=== PATIENT | female | born 1940 | race Caucasian/White ===

== ENCOUNTER 2018-11-10 15:52 | Emergency (ER) | payer MEDICARE, OTHER ==
--- NOTE | 2018-11-10 16:57 | ED Physician Documentation ---
PD HPI SKIN - Stated complaint Stated Complaint: POSS ALLERGIC REACTION - Chief complaint Chief Complaint: Allergic Rx - History obtained from History obtained from: Patient - History of Present Illness Timing - onset: How many minutes ago (20), Today Timing - duration: Minutes (onset about 20 minutes ago of abrupt swelling eyes, face, throat, and general itching. No obvious cause to it.) Timing - details: Abrupt onset, Still present (has improved from the peak of the swelling already.) Location: [place] Quality / character: Itchy, Swelling Associated symptoms: Facial swelling, Dyspnea. No: Fever, Myalgias, Abd pain, N/V/D Contributing factors: Exposed to food. No: Exposed to medication, Recent illness Similar symptoms before: No diagnosis (has had this couple of times, not as severe, also abrupt and resolves in hours to a day. has been several months prior) Recently seen: Not recently seen Review of Systems Constitutional: denies: Fever, Chills Nose: denies: Rhinorrhea / runny nose, Congestion Throat: denies: Sore throat Respiratory: denies: Cough GI: denies: Nausea, Vomiting, Diarrhea Neurologic: denies: Generalized weakness, Focal weakness, Numbness, Near syncope, Altered mental status PD PAST MEDICAL HISTORY - Past Medical History Past Medical History: Yes Cardiovascular: High cholesterol Endocrine/Autoimmune: HyPOthyroidism - Present Medications Home Medications: Ambulatory Orders Medication Instructions Recorded Confirmed Aspirin Chewable [[place] 11/10/18 Aspirin] Atorvastatin Calcium 20 mg PO DAILY PM 11/10/18 11/10/18 Celecoxib [Celebrex] 11/10/18 Cetirizine [ZyrTEC] 11/10/18 Cetirizine [ZyrTEC] 10 mg PO DAILY #15 tablet 11/10/18 Dexamethasone [Decadron] 4 mg PO DAILY #5 tablet 11/10/18 Diclofenac Sodium [Voltaren] 11/10/18 Dicyclomine [Bentyl] 11/10/18 EPINEPHrine [Epinephrine] 0.3 mg IJ ONCE PRN #1 auto.injct 11/10/18 FLUoxetine [PROzac] 20 mg PO DAILY 11/10/18 11/10/18 Fluticasone [Flonase] 11/10/18 Ketotifen Fumarate 2 drops OP Q4H PRN #5 ml 11/10/18 Levothyroxine [Synthroid] 75 mcg PO DAILY 11/10/18 11/10/18 Multivitamin [Multiple Vitamins] 1 tab PO DAILY 11/10/18 11/10/18 Omeprazole 20 mg PO DAILY 11/10/18 11/10/18 Polyethylene Glycol 3350 [Miralax] 11/10/18 traZODone [Desyrel] 50 mg PO DAILY 11/10/18 11/10/18 - Allergies Allergies/Adverse Reactions: Allergies Allergy/AdvReac Type Severity Reaction Status Date / Time No Known Drug Allergies Allergy Verified 11/10/18 15:58 - Social History Does the pt smoke?: No Smoking Status: Never smoker PD ED PE NORMAL - Vitals Vital signs reviewed: Yes - General General: Alert and oriented X 3, No acute distress, Well developed/nourished - HEENT HEENT: Other (bilateral periorbital edema. Not really general facial edema though.). No: Pharynx benign (mild uvular edema.) - Neck Neck: Supple, no meningeal sign, No adenopathy - Cardiac Cardiac: RRR, No murmur - Respiratory Respiratory: Clear bilaterally - Abdomen Abdomen: Soft, Non tender - Derm Derm: Normal color, Warm and dry - Neuro Neuro: Alert and oriented X 3, No motor deficit, Normal speech Results - Vitals Vitals: Vital Signs - 24 hr 11/10/18 11/10/18 11/10/18 15:53 16:34 17:23 Temperature 36.4 C L Heart Rate 75 74 72 Respiratory 16 18 18 Rate Blood Pressure 153/84 H 131/81 H O2 Saturation 99 100 97 Oxygen O2 Source Room air PD MEDICAL DECISION MAKING - ED course Complexity details: considered differential (has puffy eyes and some uvular edema, but is improving already without treatment. No obvious cause for the symptoms. Given general symptoms, including some throat edema, she should problably carry epipen. Will treat with allergy regimen.), d/w patient Departure - Departure Disposition: 01 Home, Self Care Clinical Impression: Acute allergic reaction Qualifiers: Encounter type: initial encounter Qualified Code(s): T78.40XA - Allergy, unspecified, initial encounter Condition: Stable Record reviewed to determine appropriate education?: Yes Instructions: ED Allergic Reaction General Other Follow-Up: Júnior Morales MD [Primary Care Provider] - Prescriptions: Cetirizine [ZyrTEC] 10 mg PO DAILY #15 tablet Dexamethasone [Decadron] 4 mg PO DAILY #5 tablet EPINEPHrine [Epinephrine] 0.3 mg IJ ONCE PRN #1 auto.injct PRN Reason: Anaphylaxis Ketotifen Fumarate 2 drops OP Q4H PRN #5 ml PRN Reason: Itching Comments: You can use some antihistamine eyedrops such as ketotifen which are prescription or [id number]. Otherwise general antihistamine such as Benadryl every 6 hours if needed for itching. Consider long-acting antihistamine such as cetirizine daily for the next several days. Decadron steroid daily for the next several days. Recheck if not improved over the next day or 2. Consider carrying an EpiPen with you because of the abrupt and unpredictable nature of th brynn episodes. Discharge Date/Time: 11/10/18 17:35
[2018-11-10] MEDS ORDERED: DEXAMETHASONE 10 MG/ML VIAL PO STA (17:18)
[2018-11-10] MEDS ORDERED: diphenhydrAMINE 25 MG CAPSULE PO STA (17:18)
[2018-11-10] MEDS ORDERED: CETIRIZINE 10 MG TABLET PO STA (17:18)
[2018-11-10 17:24] VITALS: BP 131/81
== END 2018-11-10 17:35 | disposition home or self-care (01) ==
LOC: ED 15:52
DX: T78.40XA Allergy, unspecified, initial encounter (principal); X58.XXXA Exposure to other specified factors, initial encounter; R22.9 Localized swelling, mass and lump, unspecified; E03.9 Hypothyroidism, unspecified; E78.00 Pure hypercholesterolemia, unspecified; Z79.82 Long term (current) use of aspirin
CPT/HCPCS: 99283; A9270

== ENCOUNTER 2023-06-27 12:25 | Emergency (ER) | payer MEDICARE, OTHER ==
[2023-06-27 12:38] VITALS: BP 117/63; O2SAT 100
--- NOTE | 2023-06-27 14:24 | ED Physician Documentation ---
PD HPI BACK PAIN - Stated complaint Stated Complaint: BACK PX - Chief complaint Chief Complaint: Back Pain - History obtained from History obtained from: Patient (some alzheimers so history is somewhat disjointed), Caregiver (from [facility] is present in ER with the patient.) - History of Present Illness Timing - onset: Today, Last night Timing - details: Gradual onset (The patient has some back pain starting last night into today. Is much worse today. The patient describes a injury of being bumped into with a possible fall. The social media assistant with her not aware of this and not clear the timing of it as the patient does have unclear history and time sense.), Still present Location: Lower Associated symptoms: Other (nausea with vomited once this morning coming here. aide says the patient described some pain with urination yesterday.). No: Fever, Weakness, Numbness Improves with: Rest Worsened by: Movement Contributing factors: No: Lifting, Twisting Similar symptoms before: Has not had sx before Recently seen: Not recently seen Review of Systems Constitutional: denies: Fever Nose: denies: Rhinorrhea / runny nose, Congestion Throat: denies: Sore throat Respiratory: denies: Cough GI: denies: Abdominal Pain, Vomiting, Diarrhea : denies: Dysuria, Frequency, Incontinent Skin: denies: Rash, Lesions Musculoskeletal: reports: Back pain Neurologic: denies: Focal weakness, Numbness PD PAST MEDICAL HISTORY - Past Medical History Cardiovascular: High cholesterol Endocrine/Autoimmune: HyPOthyroidism - Present Medications Home Medications: Ambulatory Orders Medication Instructions Recorded Confirmed Aspirin Chewable [[facility] [place] 11/10/18 Aspirin] Atorvastatin Calcium 20 mg PO DAILY PM 11/10/18 11/10/18 Celecoxib [Celebrex] 11/10/18 Cetirizine [ZyrTEC] 11/10/18 Cetirizine [ZyrTEC] 10 mg PO DAILY #15 tablet 11/10/18 Diclofenac Sodium [Voltaren] 11/10/18 Dicyclomine [Bentyl] 11/10/18 EPINEPHrine [Epinephrine] 0.3 mg IJ ONCE PRN #1 auto.injct 11/10/18 FLUoxetine [PROzac] 20 mg PO DAILY 11/10/18 11/10/18 Fluticasone [Flonase] 11/10/18 Ketotifen Fumarate 2 drops OP Q4H PRN #5 ml 11/10/18 Levothyroxine [Synthroid] 75 mcg PO DAILY 11/10/18 11/10/18 Multivitamin [Multiple Vitamins] 1 tab PO DAILY 11/10/18 11/10/18 Omeprazole 20 mg PO DAILY 11/10/18 11/10/18 Polyethylene Glycol 3350 [Miralax] 11/10/18 dexAMETHasone [Decadron] 4 mg PO DAILY #5 tablet 11/10/18 traZODone [Desyrel] 50 mg PO DAILY 11/10/18 11/10/18 Ciprofloxacin [Cipro] 250 mg PO Q12H #10 tablet 06/27/23 HYDROcod/ACETAM 5/325 [[place] 5/325] 1 - 2 tab PO Q6H PRN #10 tablet 06/27/23 - Allergies Allergies/Adverse Reactions: Allergies Allergy/AdvReac Type Severity Reaction Status Date / Time No Known Drug Allergies Allergy Verified 06/27/23 12:33 - Social History Does the pt smoke?: No Smoking Status: Never smoker PD ED PE NORMAL - Vitals Vital signs reviewed: Yes - General General: Alert and oriented X 3, Well developed/nourished - Cardiac Cardiac: RRR, No murmur - Respiratory Respiratory: No respiratory distress, Clear bilaterally - Abdomen Abdomen: Soft, Non tender - Back Back: No CVA TTP, Other (tender upper lumbar area midline. No rash nor sores. ) - Derm Derm: Normal color, Warm and dry - Extremities Extremities: Normal ROM s pain, No edema, No calf tenderness / cord - Neuro Neuro: No motor deficit, No sensory deficit, Other (normal knee reflexes for age (slightly sluggish). Normal sensation in dermatomal pattern testing. ) Results - Vitals Vitals: Vital Signs - 24 hr 06/27/23 12:33 Temperature 36.5 C Heart Rate 77 Respiratory 16 Rate Blood Pressure 117/63 O2 Saturation 100 Oxygen O2 Source Room air - Labs Labs: Laboratory Tests 06/27/23 06/27/23 06/27/23 15:00 15:00 16:51 WBC 12.6 H RBC 3.78 L Hgb 11.7 L Hct 35.5 L MCV 93.9 MCH 31.0 MCHC 33.0 RDW 12.8 Plt Count 259 MPV 11.0 H Neut # (Auto) 10.2 H Lymph # (Auto) 1.2 L Upson # (Auto) 1.1 H Eos # (Auto) 0.0 Baso # (Auto) 0.1 Absolute Nucleated RBC 0.00 Nucleated RBC % 0.0 Sodium 137 Potassium 3.8 Chloride 103 Carbon Dioxide 28 Anion Gap 6.0 BUN 18 Creatinine 0.9 Estimated GFR (MDRD) 60 L Glucose 129 H Calcium 9.6 Magnesium 1.9 Total Bilirubin 1.0 AST 15 ALT 19 Alkaline Phosphatase 51 Total Protein 7.1 Albumin 4.3 Globulin 2.8 Albumin/Globulin Ratio 1.5 Lipase 22 Urine Color YELLOW Urine Clarity HAZY Urine pH 5.5 Ur Specific Hawks 1.025 Urine Protein TRACE Urine Glucose (UA) NEGATIVE Urine Ketones NEGATIVE Urine Occult Blood TRACE-INTA Urine Nitrite NEGATIVE Urine Bilirubin NEGATIVE Urine Urobilinogen 0.2 (NORMAL) Ur Leukocyte Esterase SMALL H Urine RBC 6-10 H Urine WBC 6-10 H Ur Squamous Epith Cells FEW Squamous Urine Bacteria Few Ur Microscopic Review INDICATED Urine Culture Comments INDICATED - Rads (name of study) abd/pel CT Relevant Findings:: Prelim report reviewed (no kidney stones nor other acute abdominal process. Back showing multilevel degenerative changes. No fractures. Scoliosis noted. ), EMP independent interpretation of test PD Medical Decision Making - ED course Complexity details: considered differential (The patient with mid to upper lumbar pain but associated with some possible dysuria and nausea. Poor historian due to Alzheimer's. Possible injury that she describes but unclear the timing of that. We can get CT scan to evaluate for stones, compression fracture, other causes. We will check urine), d/w patient ED course: Care to Dr. Denise at shift change with verbal report and expected action plan. Departure - Departure Disposition: 01 Home, Self Care Clinical Impression: UTI (urinary tract infection), Back pain Condition: Stable Record reviewed to determine appropriate education?: Yes Instructions: ED Neck Back Pain General, ED UTI Cystitis Female Prescriptions: Ciprofloxacin [Cipro] 250 mg PO Q12H #10 tablet HYDROcod/ACETAM 5/325 [[place] 5/325] 1 - 2 tab PO Q6H PRN #10 tablet PRN Reason: Pain Comments: We did a CT of the belly. It only showed degenerative changes and scoliosis. She does have evidence of UTI. I sent a prescription for antibiotics and small number of narcotic painkillers to We will culture your urine, the results should be done in 48-72 hours. If an antibiotic change is necessary we will call you. Return if worse in the meantime, especially if you develop increasing flank pain, fevers, or cannot keep down the medication. Call your doctor to arrange a follow-up appointment, make the next available appointment. In the interim, return anytime if worse or if new symptoms develop. I am prescribing a short course of narcotic pain medication for you. These are potentially dangerous and addictive medications that should be used carefully. These medications may constipate you. Take an uwmu-bbx-pnzhirh stool softener (docusate) twice daily with plenty of water while taking these medications. If you go 24 hours without a bowel movement, take [id number] miralax, per package instructions. Do not drink or drive while taking these medications. If you received narcotic or sedating medications while in the emergency depa rtment, do not drive for 24 hours. Store this medication in a safe, secure place and out of reach of children. It is a violation of federal law to give or sell this medication to another person or to use in a manner other than prescribed. The ED will not refill narcotic prescriptions, including prescriptions lost or stolen. To dispose of unwanted medications: 1. [facility] provides a drop box for medication in pill form only (no liquids) 8:00 am to 4:30 p.m. Saturday-Saturday in the lobby of the [facility], [address] [place] [address]. Empty pills into ziplock bag before disposal. Call [phone] for information. 2.[employer] is a free service available to all [facility] residents. Go to [email or web address] Note that many narcotic pain relievers also contain Tylenol/acetaminophen. Please ensure that your total dose of acetaminophen from all sources does not exceed 3 g (3000 mg) per day. Discharge Date/Time: 06/27/23 19:06
[2023-06-27] MEDS ORDERED: KETOROLAC 15 MG/ML VIAL IVP STA (14:45)
[2023-06-27] MEDS ORDERED: HYDROmorphone 0.5 MG/0.5 ML SYRINGE IVP STA (14:46)
[2023-06-27 15:07] LABS: BASOPHILS # (AUTO) 0.1 10^3/uL (0.0-0.1); BASOPHILS % (AUTO) 0.6 %; HCT - HEMATOCRIT 35.5 % (37.0-47.0); HGB - HEMOGLOBIN 11.7 g/dL (12.0-16.0); LYMPHOCYTES # (AUTO) 1.2 10^3/uL (1.5-3.5); LYMPHOCYTES % (AUTO) 9.3 %; MEAN CORPUSCULAR VOLUME 93.9 fL (81.0-99.0); MONOCYTES # (AUTO) 1.1 10^3/uL (0.0-1.0); NEUTROPHILS # (AUTO) 10.2 10^3/uL (1.5-6.6); NEUTROPHILS % (AUTO) 80.8 %; PLT - PLATELET COUNT 259 10^3/uL (130-450); RED BLOOD COUNT 3.78 10^6/uL (4.20-5.40); RED CELL DISTRIBUTION WIDTH 12.8 % (12.0-15.0); WHITE BLOOD COUNT 12.6 x10^3/uL (4.8-10.8)
[2023-06-27 15:23] LABS: ALBUMIN 4.3 g/dL (3.2-5.5); ALBUMIN/GLOBULIN RATIO 1.5 (1.0-2.2); CALCIUM 9.6 mg/dL (8.5-10.3); CREATININE 0.9 mg/dL (0.6-1.3); MAGNESIUM 1.9 mg/dL (1.7-2.3); POTASSIUM 3.8 mmol/L (3.5-4.5); TOTAL PROTEIN 7.1 g/dL (6.4-8.9)
[2023-06-27 17:01] LABS: BILIRUBIN,URINE NEGATIVE (NEGATIVE); GLUCOSE, URINE (UA) NEGATIVE (NEGATIVE); KETONES,URINE (UA) NEGATIVE (NEGATIVE); LEUKOCYTE ESTERASE, URINE SMALL (NEGATIVE); NITRITE,URINE NEGATIVE (NEGATIVE); OCCULT BLOOD,URINE TRACE-INTA (NEGATIVE); PH,URINE 5.5 PH (5.0-7.5); PROTEIN,URINE TRACE mg/dL (NEGATIVE); UROBILINOGEN,URINE 0.2 (NORMAL) E.U./dL (NORMAL)
--- NOTE | 2023-06-27 17:12 | CT Report ---
PROCEDURE: ABDOMEN/PELVIS WO INDICATIONS: lumbar to flank pain onset today TECHNIQUE: A CT scan of the abdomen and pelvis was performed without the use of intravenous contrast. Images we re recorded and evaluated at appropriate window settings. Reformats: coronal and sagittal. For radiat ion dose reduction, the following was used: automated exposure control, adjustment of mA and/or kV ac cording to patient size. COMPARISON: None. FINDINGS: Image quality: Excellent. Lung bases and heart: Unremarkable. Liver: No solid mass. Water density liver cysts can be seen. Gallbladder and biliary tree: Within normal limits. Spleen: No splenomegaly. Pancreas: No pancreatic ductal dilation. Adrenals: No adrenal nodule. Kidneys and ureters: No hydronephrosis. No renal cystic lesion which requires follow up. No solid mas s. Bowel and peritoneum: No bowel distension. No pathologic free fluid. Lymph nodes: No central or retroperitoneal adenopathy. Vessels: No infrarenal aortic aneurysm. Atherosclerotic calcification is seen. PELVIS Reproductive organs: This patient is status post hysterectomy. No adnexal masses can be seen. Bladder: No wall thickness, accounting for underdistention. Pelvic lymph nodes: No pelvic adenopathy by size criteria. Bones: No aggressive osseous abnormality. Multiple levels of lumbar spine degenerative change can be seen, which are worst at L2-L3, L4-L5, and L5-S1. Mild levoconvex scoliotic curvature is seen. Other: No significant ventral or inguinal hernia. IMPRESSION: No hydronephrosis or obstructing renal stone. There is levoconvex scoliosis and multiple levels of lumbar spine degenerative change. Additional findings: Water density liver cysts Hysterectomy Reviewed by: Earle Good MD on 06/27/2023 4:11 PM [facility]DT Approved by: Earle Good MD on 06/27/2023 4:11 PM AKDT Station ID: [id number]
[2023-06-27 17:16] LABS: CLARITY,URINE HAZY (CLEAR)
[2023-06-27 17:26] LABS: BACTERIA,URINE Few /HPF (None Seen); SQUAMOUS EPITHELIAL CELL,UR FEW Squamous (<= Few)
[2023-06-27] MEDS ORDERED: CIPROFLOXACIN 250 MG TABLET PO STA (17:56)
--- NOTE | 2023-06-27 17:58 | ED Physician Documentation ---
ED Addendum - Addendum Addendum: 06/27/23 17:[address] Fletcher pending CT and urinalysis. She does have a leukocytosis on CBC. CMP normal. Urine positive for infection which we will treat in combination with leukocytosis with Cipro 250 p.o. twice daily for [address] just showing scoliosis and degenerative changes. Diagnosis: 1. UTI 2. Back pain 3. Dementia Disposition: Discharged home Condition: Stable
== END 2023-06-27 19:06 | disposition home or self-care (01) ==
LOC: ED 12:25
DX: N39.0 Urinary tract infection, site not specified (principal); M54.9 Dorsalgia, unspecified
CPT/HCPCS: 36415; 74176; 80053; 81001; 83690; 83735; 85025; 87086; 96374; 99284; A9270; J1170; 81003

== ENCOUNTER 2023-06-27 19:11 | Outpatient (CLI) | payer MEDICARE, OTHER | END 2023-06-27 23:59 | disposition home or self-care (01) | LOC: EMS 19:11 | PROVIDERS: ATTEND Emergency Medicine | DX: R41.0 Disorientation, unspecified (principal); N39.0 Urinary tract infection, site not specified; M54.9 Dorsalgia, unspecified | CPT/HCPCS: A0425; A0428 ==